=== PATIENT | female | born 1975 | race African-American/Black ===

== ENCOUNTER 2016-05-30 06:53 | Emergency (ER) ==
[2016-05-30] MEDS ORDERED: PROTONIX IV ONE (07:13)
[2016-05-30] MEDS ORDERED: SODIUM CHLORIDE 0.9% INJ ONE (07:13)
[2016-05-30] MEDS ORDERED: NS 1,000 ML IV ONE (07:13)
[2016-05-30 09:10] LABS: URINE CULTURE NEEDED? NO; URINE MICRO REVIEW NEEDED? NO; URINE SOURCE CLEAN CATCH
[2016-05-30 09:12] LABS: BILIRUBIN URINE NEGATIVE (NEGATIVE); BLOOD URINE MODERATE (NEGATIVE); COLOR YELLOW; GLUCOSE URINE NEGATIVE (NEGATIVE); LEUKOCYTES URINE NEGATIVE (NEGATIVE); NITRITE URINE NEGATIVE (NEGATIVE); PH URINE 7.5; PROTEIN URINE TRACE mg/dL (NEGATIVE); SP GRAVITY URINE 1.021; TURBIDITY URINE CLEAR (CLEAR); UR EPITHELIAL CELLS <10 /HPF (<10); URINE BACTERIA NEGATIVE /HPF; URINE RBC 20-40 /HPF (<10); URINE WBC <10 /HPF (<10); UROBILINOGEN URINE NORMAL (NORMAL)
[2016-05-30 09:14] LABS: INR 0.97; PROTIME 10.3 Seconds (9.2-11.7); PTT 21.7 Seconds (22.0-36.0)
[2016-05-30 09:21] LABS: AGAP 13; ALBUMIN 4.1 g/dL (3.5-5.0); ALKALINE PHOSPHATASE 81 U/L (32-104); AMYLASE 111 U/L (20-200); BUN 13 mg/dL (8-22); CALCIUM 9.2 mg/dL (8.8-10.2); CHLORIDE 96 mmol/L (98-107); COSMO 271; GOT 39 U/L (10-30); GPT 47 U/L (10-36); LIPASE 40 U/L (13-60); POTASSIUM 4.6 mmol/L (3.5-5.1); SODIUM 135 mmol/L (136-145); TCO2 26 mmol/L (25-35); TOTAL BILIRUBIN 0.28 mg/dL (0.20-1.00); TOTAL PROTEIN 7.9 g/dL (6.3-8.3)
[2016-05-30] MEDS ORDERED: MORPHINE IV ONE (09:29)
[2016-05-30 09:33] LABS: BASO% 0.1 % (0.0-0.8); EOS# 0.01 X1000 (0.0-0.7); EOS% 0.1 % (0.0-10.0); HEMATOCRIT 40.5 % (37.0-47.0); HEMOGLOBIN 13.4 g/dL (12.0-16.0); IMM GRAN# 0.02 X1000 (0.0-0.04); IMM GRAN% 0.1 % (0.0-0.5); LYMPH# 1.19 X1000 (1.2-3.4); LYMPH% 8.3 % (20.5-51.1); MANUAL DIFF NEEDED? NO; MCH 30.2 PG (27-31); MCHC 33.1 g/dL (33-37); MCV 91.2 FL (81-99); MONO# 0.59 X1000 (0.11-0.59); MONO% 4.1 % (1.7-9.3); MPV 10.1 FL (7.4-10.4); NEUT% 87.3 % (42.2-75.2); PLT 279 X1000 (130-400); RBC 4.44 XMIL (4.2-5.4)
--- NOTE | 2016-05-30 09:49 | PROVIDER DOCUMENTATION ---
HPI-Abdominal Pain/GI Problem - General Source: patient <Magdalena Gardner - Last Filed: 05/30/16 09:44> <Emma Galvan - Last Filed: 05/30/16 14:17> - General Chief Complaint: Abdominal Pain Stated Complaint: AB PAIN BLOODY STOOL Time Seen by Provider: 05/30/16 07:13 Allergies/Adverse Reactions: Patient Allergies Allergy/AdvReac Type Severity Reaction Status Date / Time No Known Allergies Allergy Verified 05/30/16 07:28 - History of Present Illness-ABD Nature of Presenting Problems: Pt is a 40 yof who came to the ED with a cc of N/V/D. Pt reports she woke up at 2am and started vomiting and having diarrhea. Pt reports after several episodes of diarrhea it started to have bright red blood in it. Pt reports she has had 20 episodes of diarrhea. (Magdalena Gardner) Review of Systems - Adult - REVIEW OF SYSTEMS - ADULT Constitutional: denies: chills, fever Eyes: denies: blurred vision, double vision Ears, Nose, Mouth & Throat: reports: no symptoms reported Cardiovascular: denies: heart murmur, orthopnea Respiratory: reports: no symptoms reported Gastrointestinal: reports: diarrhea, nausea, rectal bleeding, vomiting. denies : hematemesis, constipation, difficulty swallowing, frequent heartburn Genitourinary: denies: hematuria, hesitency Musculoskeletal: reports: no symptoms reported Integumentary: reports: no symptoms reported Neurological: reports: no symptoms reported Psychiatric: reports: no symptoms reported Endocrine: reports: no symptoms reported Hematologic/Lymphatic: reports: no symptoms reported Allergic/Immunologic: reports: no symptoms reported All Other Systems: Reviewed and Negative <Magdalena Gardner - Last Filed: 05/30/16 09:44> Past History - Adult - PAST MEDICAL HISTORY-ADULT Review of Records: reports: Old Records Reviewed, Nursing Assessment Review Major Childhood Illnesses: reports: denies history Cardiovascular: reports: denies history Respiratory: reports: denies history Gastrointestinal: reports: denies history Obstetrical/Gynecological: reports: denies history Genitourinary: reports: denies history Musculoskeletal: reports: denies history Neurological: reports: denies history Psychiatric: reports: denies history Endocrine/Immune: reports: denies history Other Conditions: reports: denies history - PRIOR SURGERIES/PROCEDURES Surgical/Procedure History: reports: - PRIOR HOSPITALIZATIONS Prior Hospitalizations: reports: for other non-related - IMMUNIZATION STATUS Childhood Immunizations: See Nurse Assessment Flu Vaccine: See Nurse Assessment - FAMILY HISTORY Family History: reviewed, not pertinent <Magdalena Gardner - Last Filed: 05/30/16 09:44> Physical Exam-General - PHYSICAL EXAM-ADULT Initial Vital Signs Reviewed: Yes - CONSTITUTIONAL General Appearance: appears well, alert, no apparent distress - EYES Eyes: PERRL/EOMI, pink conjunctivae - HEAD, EARS, NOSE, MOUTH & THROAT HENMT: normocephalic/atraumatic, moist mucous membranes, normal ENT inspection - NECK Neck: non-tender, full range of motion, normal inspection - RESPIRATORY Respiratory: chest non-tender, lungs clear, normal breath sounds - CARDIOVASCULAR Cardiovascular: normal peripheral pulses, regular rate, rhythm, no edema - GASTROINTESTINAL (ABDOMEN) Abdominal Exam: normal bowel sounds, non tender, soft - LYMPHATIC Lymphatic: no adenopathy - MUSCULOSKELETAL Back Exam: normal inspection, no CVA tenderness, no vertebral tenderness Extremity: normal range of motion, non-tender, normal gait - SKIN Integumentary: normal color, normal turgor, warm/dry - NEUROLOGIC Neurologic: grossly normal, no motor/sensory deficits - PSYCHIATRIC Psych/Mental Status: normal mood/affect, normal thought content, normal thought process, oriented x 3 <Magdalena Gardner - Last Filed: 05/30/16 09:44> Progress <Magdalena Gardner - Last Filed: 05/30/16 09:44> - REASSESSMENT Reassessment #1 Time Reassessed: 14:16 Status: unchanged (I went to see pt's diarrhea/bleeding at the [facility] - very small amount of bloodt stool.) <Emma Galvan X - Last Filed: 05/30/16 14:17> - PLAN OF CARE/RESULTS Progress/Plan/Lab Results: Vital Signs - 24 hr 05/30/16 06:57 Temperature 97.5 F L Pulse Rate 87 Respiratory 18 Rate Blood Pressure 134/74 O2 Sat by Pulse 100 Oximetry Orders Category Date Time Status Saline Loc DIRECTED Care 05/30/16 07:13 Active NPO Diet 05/30/16 07:[address] ABD/PELVIS W/ IV CONT ONLY [CT] Stat Exams 05/30/16 07:13 Ordered AMYLASE [CHEM] Stat Lab 05/30/16 08:26 Completed CBC WITH ELECTRONIC DIFF [HEME] Stat Lab 05/30/16 08:26 Completed COMPREHENSIVE METABOLIC PANEL [CHEM] Stat Lab 05/30/16 08:26 Completed LIPASE [CHEM] Stat Lab 05/30/16 08:26 Completed TEST-URINE [PREG] Stat Lab 05/30/16 08:55 Completed PROTIME WITH INR [COAG] Stat Lab 05/30/16 08:26 Completed PTT [COAG] Stat Lab 05/30/16 08:26 Completed URINALYSIS W/POSS RFLX CULT [URINALYSIS] Stat Lab 05/30/16 08:55 Completed 0.9% Sodium Chloride Inj [Ns] 1,000 ml Med 05/30/16 07:13 Discontinued IV 999 mls/hr Morphine Med 05/30/16 09:29 Discontinued 4 mg IV NOW ONE Pantoprazole [Protonix] Med 05/30/16 07:13 Discontinued 40 mg IV NOW ONE Sodium Chloride 0.9% Med 05/30/16 07:13 Discontinued 10 ml INJ NOW ONE Laboratory Tests 05/30/16 05/30/16 05/30/16 08:26 08:26 08:26 WBC 14.41 H RBC 4.44 Hgb 13.4 Hct 40.5 MCV 91.2 MCH 30.2 MCHC 33.1 RDW Std Deviation 13.4 Plt Count 279 MPV 10.1 Immature Gran % (Auto) 0.1 Neut % (Auto) 87.3 H Lymph % (Auto) 8.3 L [place] % (Auto) 4.1 Eos % (Auto) 0.1 Baso % (Auto) 0.1 Immature Gran # (Auto) 0.02 Neut # (Auto) 12.59 H Lymph # (Auto) 1.19 L [place] # (Auto) 0.59 Eos # (Auto) 0.01 Baso # (Auto) 0.01 PT 10.3 INR 0.97 PTT (Actin FS) 21.7 L Sodium 135 L Potassium 4.6 Chloride 96 L Carbon Dioxide 26 Anion Gap 13 BUN 13 Creatinine 1.0 H Estimated GFR/1.73 m2 > 60 BUN/Creatinine Ratio 13 Glucose 117 H Calculated Osmolality 271 Calcium 9.2 Total Bilirubin 0.28 AST 39 H ALT 47 H Alkaline Phosphatase 81 Total Protein 7.9 Albumin 4.1 Globulin 3.8 Albumin/Globulin Ratio 1.1 Amylase 111 Lipase 40 Urine Source Urine Color Urine Turbidity Urine pH Ur Specific [place] Urine Protein Ur Glucose (Stick) Ur Ketones (Stick) Urine Blood Urine Nitrite Urine Bilirubin Urobilinogen Dipstick Urine Leukocytes Urine WBC (Auto) Urine RBC (Auto) U Epithel Cells (Auto) Urine Bacteria (Auto) Urine Test 05/30/16 05/30/16 08:55 08:55 WBC RBC Hgb Hct MCV MCH MCHC RDW Std Deviation Plt Count MPV Immature Gran % (Auto) Neut % (Auto) Lymph % (Auto) Towner % (Auto) Eos % (Auto) Baso % (Auto) Immature Gran # (Auto) Neut # (Auto) Lymph # (Auto) [place] # (Auto) Eos # (Auto) Baso # (Auto) PT INR PTT (Actin FS) Sodium Potassium Chloride Carbon Dioxide Anion Gap BUN Creatinine Estimated GFR/1.73 m2 BUN/Creatinine Ratio Glucose Calculated Osmolality Calcium Total Bilirubin AST ALT Alkaline Phosphatase Total Protein Albumin Globulin Albumin/Globulin Ratio Amylase Lipase Urine Source CLEAN CATCH Urine Color YELLOW Urine Turbidity CLEAR Urine pH 7.5 Ur Specific [place] 1.021 Urine Protein TRACE A Ur Glucose (Stick) NEGATIVE Ur Ketones (Stick) NEGATIVE Urine Blood MODERATE A Urine Nitrite NEGATIVE Urine Bilirubin NEGATIVE Urobilinogen Dipstick NORMAL Urine Leukocytes NEGATIVE Urine WBC (Auto) <10 Urine RBC (Auto) 20-40 A U Epithel Cells (Auto) <10 Urine Bacteria (Auto) NEGATIVE Urine Test NEGATIVE (Magdalena Gardner) Laboratory Results - last 24 hr 05/30/16 05/30/16 05/30/16 08:26 08:26 08:26 WBC 14.41 H RBC 4.44 Hgb 13.4 Hct 40.5 MCV 91.2 MCH 30.2 MCHC 33.1 RDW Std Deviation 13.4 Plt Count 279 MPV 10.1 Immature Gran % (Auto) 0.1 Neut % (Auto) 87.3 H Lymph % (Auto) 8.3 L [place] % (Auto) 4.1 Eos % (Auto) 0.1 Baso % (Auto) 0.1 Immature Gran # (Auto) 0.02 Neut # (Auto) 12.59 H Lymph # (Auto) 1.19 L [place]er # (Auto) 0.59 Eos # (Auto) 0.01 Baso # (Auto) 0.01 PT 10.3 INR 0.97 PTT (Actin FS) 21.7 L Sodium 135 L Potassium 4.6 Chloride 96 L Carbon Dioxide 26 Anion Gap 13 BUN 13 Creatinine 1.0 H Estimated GFR/1.73 m2 > 60 BUN/Creatinine Ratio 13 Glucose 117 H Calculated Osmolality 271 Calcium 9.2 Total Bilirubin 0.28 AST 39 H ALT 47 H Alkaline Phosphatase 81 Total Protein 7.9 Albumin 4.1 Globulin 3.8 Albumin/Globulin Ratio 1.1 Amylase 111 Lipase 40 Urine Source Urine Color Urine Turbidity Urine pH Ur Specific [place] Urine Protein Ur Glucose (Stick) Ur Ketones (Stick) Urine Blood Urine Nitrite Urine Bilirubin Urobilinogen Dipstick Urine Leukocytes Urine WBC (Auto) Urine RBC (Auto) U Epithel Cells (Auto) Urine Bacteria (Auto) Urine Test 05/30/16 05/30/16 05/30/16 08:55 08:55 13:52 WBC RBC Hgb 13.7 Hct 40.6 MCV MCH MCHC RDW Std Deviation Plt Count MPV Immature Gran % (Auto) Neut % (Auto) Lymph % (Auto) Towner % (Auto) Eos % (Auto) Baso % (Auto) Immature Gran # (Auto) Neut # (Auto) Lymph # (Auto) Towner # (Auto) Eos # (Auto) Baso # (Auto) PT INR PTT (Actin FS) Sodium Potassium Chloride Carbon Dioxide Anion Gap BUN Creatinine Estimated GFR/1.73 m2 BUN/Creatinine Ratio Glucose Calculated Osmolality Calcium Total Bilirubin AST ALT Alkaline Phosphatase Total Protein Albumin Globulin Albumin/Globulin Ratio Amylase Lipase Urine Source CLEAN CATCH Urine Color YELLOW Urine Turbidity CLEAR Urine pH 7.5 Ur Specific [place] 1.021 Urine Protein TRACE A Ur Glucose (Stick) NEGATIVE Ur Ketones (Stick) NEGATIVE Urine Blood MODERATE A Urine Nitrite NEGATIVE Urine Bilirubin NEGATIVE Urobilinogen Dipstick NORMAL Urine Leukocytes NEGATIVE Urine WBC (Auto) <10 Urine RBC (Auto) 20-40 A U Epithel Cells (Auto) <10 Urine Bacteria (Auto) NEGATIVE Urine Test NEGATIVE Vital Signs Temp Pulse Resp BP Pulse Ox 05/30/16 06:57 97.5 F L 87 18 134/74 100 No Known Allergies Allergy (Verified 05/30/16 07:28) No Home Medications 04/06/16 Dietary Diet NPO Start Sat May 30 712 Laboratory 05/30/16 05/30/16 05/30/16 13:52 08:55 08:55 WBC RBC Hgb 13.7 Hct 40.6 MCV MCH MCHC RDW Std Deviation Plt Count MPV Immature Gran % (Auto) Neut % (Auto) Lymph % (Auto) [place] % (Auto) Eos % (Auto) Baso % (Auto) Immature Gran # (Auto) Neut # (Auto) Lymph # (Auto) Towner # (Auto) Eos # (Auto) Baso # (Auto) PT INR PTT (Actin FS) Sodium Potassium Chloride Carbon Dioxide Anion Gap BUN Creatinine Estimated GFR/1.73 m2 BUN/Creatinine Ratio Glucose Calculated Osmolality Calcium Total Bilirubin AST ALT Alkaline Phosphatase Total Protein Albumin Globulin Albumin/Globulin Ratio Amylase Lipase Urine Source CLEAN CATCH Urine Color YELLOW Urine Turbidity CLEAR Urine pH 7.5 Ur Specific [place] 1.021 Urine Protein TRACE A Ur Glucose (Stick) NEGATIVE Ur Ketones (Stick) NEGATIVE Urine Blood MODERATE A Urine Nitrite NEGATIVE Urine Bilirubin NEGATIVE Urobilinogen Dipstick NORMAL Urine Leukocytes NEGATIVE Urine WBC (Auto) <10 Urine RBC (Auto) 20-40 A U Epithel Cells (Auto) <10 Urine Bacteria (Auto) NEGATIVE Urine Test NEGATIVE 05/30/16 05/30/16 05/30/16 08:26 08:26 08:26 WBC 14.41 H RBC 4.44 Hgb 13.4 Hct 40.5 MCV 91.2 MCH 30.2 MCHC 33.1 RDW Std Deviation 13.4 Plt Count 279 MPV 10.1 Immature Gran % (Auto) 0.1 Neut % (Auto) 87.3 H Lymph % (Auto) 8.3 L [place] % (Auto) 4.1 Eos % (Auto) 0.1 Baso % (Auto) 0.1 Immature Gran # (Auto) 0.02 Neut # (Auto) 12.59 H Lymph # (Auto) 1.19 L [place] # (Auto) 0.59 Eos # (Auto) 0.01 Baso # (Auto) 0.01 PT 10.3 INR 0.97 PTT (Actin FS) 21.7 L Sodium 135 L Potassium 4.6 Chloride 96 L Carbon Dioxide 26 Anion Gap 13 BUN 13 Creatinine 1.0 H Estimated GFR/1.73 m2 > 60 BUN/Creatinine Ratio 13 Glucose 117 H Calculated Osmolality 271 Calcium 9.2 Total Bilirubin 0.28 AST 39 H ALT 47 H Alkaline Phosphatase 81 Total Protein 7.9 Albumin 4.1 Globulin 3.8 Albumin/Globulin Ratio 1.1 Amylase 111 Lipase 40 Urine Source Urine Color Urine Turbidity Urine pH Ur Specific [place] Urine Protein Ur Glucose (Stick) Ur Ketones (Stick) Urine Blood Urine Nitrite Urine Bilirubin Urobilinogen Dipstick Urine Leukocytes Urine WBC (Auto) Urine RBC (Auto) U Epithel Cells (Auto) Urine Bacteria (Auto) Urine Test Orders Category Date Time Status Saline Loc DIRECTED Care 05/30/16 07:13 Active NPO Diet 05/30/16 07:[address] ABD/PELVIS W/ IV CONT ONLY [CT] Stat Exams 05/30/16 07:13 Draft AMYLASE [CHEM] Stat Lab 05/30/16 08:26 Completed CBC WITH ELECTRONIC DIFF [HEME] Stat Lab 05/30/16 08:26 Completed COMPREHENSIVE METABOLIC PANEL [CHEM] Stat Lab 05/30/16 08:26 Completed H&H [HGB AND HCT] [HEME] Stat Lab 05/30/16 13:52 Completed LIPASE [CHEM] Stat Lab 05/30/16 08:26 Completed OCCULT BLOOD DIAGNOSTIC [STOOL] Stat Lab 05/30/16 10:30 Completed TEST-URINE [PREG] Stat Lab 05/30/16 08:55 Completed PROTIME WITH INR [COAG] Stat Lab 05/30/16 08:26 Completed PTT [COAG] Stat Lab 05/30/16 08:26 Completed URINALYSIS W/POSS RFLX CULT [URINALYSIS] Stat Lab 05/30/16 08:55 Completed 0.9% Sodium Chloride Inj [Ns] 1,000 ml Med 05/30/16 07:13 Discontinued IV 999 mls/hr Hydrocodone/APAP 7.5 mg/325 mg [[place]-7.5] Med 05/30/16 14:00 Discontinued 1 each PO NOW ONE Lorazepam [Ativan] Med 05/30/16 10:31 Discontinued 1 mg IV NOW ONE Morphine Med 05/30/16 09:29 Discontinued 4 mg IV NOW ONE Pantoprazole [Protonix] Med 05/30/16 07:13 Discontinued 40 mg IV NOW ONE Sodium Chloride 0.9% Med 05/30/16 07:13 Discontinued 10 ml INJ NOW ONE (Emma Galvan) Departure <Magdalena Gardner - Last Filed: 05/30/16 09:44> - Departure Time of Disposition Order: 14:10 Certified Medical Emergency: Emergent <ColeEmma Diaz - Last Filed: 05/30/16 14:17> - Departure DIAGNOSIS: Lower GI bleed Diarrhea Qualifiers: Diarrhea type: unspecified type Qualified Code(s): R19.7 - Diarrhea, unspecified Disposition: HOME 01 Condition: Stable Additional Instructions: Follow up with regular MD tomorrow. Return to ER as needed. Plenty of oral fluids. Prescriptions: Dicyclomine [Bentyl] 20 mg PO BID #20 capsule Loperamide [Imodium] 2 mg PO PRN PRN #10 capsule PRN Reason: Diarrhea Referrals: Rene Malcolm MD [Primary Care Provider] - Attestation - Scribe Verification/Attestation Scribe:: Magdalena Gardner Acting as Scribe for:: Emma Galvan Scribe documention review:: This chart was documented by a scribe and accurately reflects the service the provider performed and the decisions made by the provider. <Magdalena Gardner - Last Filed: 05/30/16 09:44> Physician Attestation
[2016-05-30] MEDS ORDERED: ATIVAN IV ONE (10:31)
--- NOTE | 2016-05-30 12:33 | Diag Imaging Result Document ---
PROCEDURE NAME: CT ABD/PELVIS W/ IV CONT ONLY - 05/30/2016 CT ABDOMEN AND PELVIS WITH IV CONTRAST: COMPARISON: None available. FINDINGS: There is a tiny hypodensity in the right hepatic lobe on image 27 of series 3 that is sharply defined. This probably represents a tiny cyst but is too small to accurately characterize. There appears to be a small left parapelvic renal cyst. The kidneys are grossly unremarkable, otherwise. The gallbladder is unremarkable. The pancreas and spleen are unremarkable. The appendix is normal. There are a couple of nabothian cysts involving the cervix. There is a probable 2.7 cm right adnexal cyst versus a small fluid- filled loop of bowel. There is trace fluid in the pelvis, usually physiologic. There is fatty infiltration of the wall of the transverse, descending, and sigmoid colon. This is nonspecific and can be seen in normal individuals, increasing in prevalence with higher body mass indexes; however, it can also be associated with chronic/recurrent inflammation such as with inflammatory bowel disease. There is no acute inflammatory change or free abdominal gas identified. The remainder of the solid viscera of the abdomen and pelvis and the remainder of the GI tract is essentially unremarkable. IMPRESSION: 1. Likely right ovarian cyst. 2. Other incidental/nonacute findings detailed above but no definite acute pathology. [facility]
[2016-05-30] MEDS ORDERED: NORCO-7.5 PO ONE (14:00)
[2016-05-30 14:07] LABS: HEMATOCRIT 40.6 % (37.0-47.0); HEMOGLOBIN 13.7 g/dL (12.0-16.0)
[2016-05-30 14:40] VITALS: BP 132/85
[2016-05-30] MEDS ORDERED: BENTYL IM ONE (14:44)
[2016-05-30] MEDS ORDERED: CIPRO PO ONE (14:44)
== END 2016-05-30 15:20 | disposition home or self-care (01) ==
LOC: ED 06:53
DX: K92.2 Gastrointestinal hemorrhage, unspecified (principal); R19.7 Diarrhea, unspecified; R11.2 Nausea with vomiting, unspecified; K92.1 Melena; R10.9 Unspecified abdominal pain; K62.5 Hemorrhage of anus and rectum
CPT/HCPCS: 74177; 80053; 81001; 81025; 82150; 82272; 83690; 85014; 85018; 85025; 85610; 85730; 96372; 96374; 96375; C9113; J0500; J2060; J2270; J7030; Q9966; S0164